=== PATIENT | female | born 1965 | race Caucasian/White ===

== ENCOUNTER 2021-12-05 15:52 | Outpatient (REF) | payer MEDICARE, SELFPAY ==
--- NOTE | ~2021-12-05 | XR_ITS ---
EXAMINATION: XR CHEST CLINICAL INFORMATION: Z87.891 - Personal history of nicotine dependence COMPARISON: None TECHNIQUE: 2 views of the chest were obtained. FINDINGS: Lungs are clear. There is no overt hyperinflation. No coarsening of the bronchiolar markings, airspace consolidation, pleural reaction, or effusion. The costophrenic sulci are clear. The heart is normal in size. The vascularity is normal. The hilar and mediastinal contours and bony structures are unremarkable. XR/XR chest 2V IMPRESSION: Unremarkable examination.
== END 2021-12-05 15:53 | disposition home or self-care (01) ==
LOC: HO.XRAY 15:52
PROVIDERS: PCP Internal Medicine; Visit Provider Internal Medicine
DX: J44.9 Chronic obstructive pulmonary disease, unspecified (principal); J30.9 Allergic rhinitis, unspecified; Z87.891 Personal history of nicotine dependence
CPT/HCPCS: 71046; 99202

== ENCOUNTER 2021-12-23 14:57 | Outpatient (REF) | payer MEDICARE, MEDICAID, SELFPAY ==
--- NOTE | 2021-12-23 16:39 | PFT_ITS ---
Forced vital capacity 41%, FEV1 25%, FEV1/FVC ratio is 48. FEF25/75 10% and MVV is 24%. Post bronchodilator therapy, there is a slight improvement in FVC by 31% and FEV1 by 11% and FEF25/75 by 39%. Total lung capacity 101% and residual volume is 184%, suggesting air trapping. Diffusion capacity 46%. CONCLUSION: 1. Very very severe obstructive airway disorder. 2. Only minimal improvement after bronchodilator therapy is noted. 3. Clinical correlation recommended. MD FELICIA Kothari/MODL / [id number]
== END 2021-12-23 14:58 | disposition home or self-care (01) ==
LOC: HO.RESP 14:57
PROVIDERS: PCP Internal Medicine; Visit Provider Internal Medicine
DX: J44.9 Chronic obstructive pulmonary disease, unspecified (principal); J30.9 Allergic rhinitis, unspecified; Z87.891 Personal history of nicotine dependence
CPT/HCPCS: 94060; 94727; 94729

== ENCOUNTER → 2022-07-06 13:38 | Outpatient (BNVA) | payer MEDICARE, MEDICAID, SELFPAY | PROVIDERS: PCP Internal Medicine; Visit Provider Internal Medicine | DX: J44.9 Chronic obstructive pulmonary disease, unspecified (principal); J30.9 Allergic rhinitis, unspecified | CPT/HCPCS: 99212 ==

== ENCOUNTER 2023-02-05 13:09 | Outpatient (AMB) | payer MEDICARE, MEDICAID, SELFPAY ==
--- NOTE | 2023-02-05 13:20 | MHC.OFFVIS ---
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 Allergies acetaminophen Adverse Reaction (Unknown, Unverified 02/05/23 13:52) DEEP SOMNOLENCE hydrocodone Adverse Reaction (Unknown, Unverified 02/05/23 13:52) DEEP SOMNOLENCE Medication List - Last Reconciled 02/05/23 by Urmila Rodriguez MD albuterol sulfate 90 mcg/actuation 2 puffs inhalation Q6H PRN ktfzxxssnpx-lhgfngqfh-sukmfznf 200-62.5-25 mcg (Trelegy Ellipta) 1 ea inhalation DAILY loratadine 10 mg PO DAILY PRN montelukast 10 mg PO DAILY Do you need a note to return to daycare/school/sports/work: No HPI COPD HPI Details 57 years old female with advanced chronic obstructive pulmonary disease is here for follow-up. She is on Trelegy 1 inhalation daily, and uses albuterol 2 puffs Q 6 hours p.r.n.. She has had no recent acute infection. She does not have any wheezing attacks. Her main issue is that she gets short of breath on minimal walking. Her pulmonary function test on 12/23/2021, had shown a severe obstructive airway disorder. In spite of being on maximum treatment she continues to be short of breath on minimal exertion. [facility] Medical History (Updated 02/05/23 @ 13:59 by Urmila Rodriguez MD) Dyspnea on exertion Allergic rhinitis Positive screening for depression on 2-item Patient Health Questionnaire (PHQ-2) Family history of ovarian cancer Cervical cancer screening Mammogram declined Vaccination declined Skin lesion of back Environmental and seasonal allergies Former smoker COPD (chronic obstructive pulmonary disease) Surgical History H/O tubal ligation S/P partial hysterectomy Family History Father Substance use disorder Myocardial infarction Sister Ovarian cancer Lung cancer Mother HTN (hypertension) Social History Housing: Other Housing Other:: live with sister Patient Tobacco Use Status: Former Tobacco user e-Cigarette/Vaping Use: Never Used service: No Current occupational status: unemployed Cognitive needs: No Hearing needs: No Vision needs: Yes Review of Systems Const All systems reviewed & are unremarkable except as noted in HPI and below Eyes Reports no additional complaints ENT Reports nasal congestion (Mild intermittent) and Reports nasal discharge Card Denies chest pain, Denies irregular heart rhythm and Denies leg edema Resp Reports as per HPI GI Reports no additional complaints Reports no additional complaints Musc Reports no additional complaints Skin/Breast Reports system reviewed and no additional complaints, except as documented Neuro Reports no additional complaints Psych Reports no additional complaints Endo Reports no additional complaints Best/Lymph Reports no additional complaints Physical Exam Vital Signs: Last Vital Signs Pulse 74 02/05/23 13:23 BP 102/62 02/05/23 13:23 Pulse Ox 96 02/05/23 13:23 Oxygen Delivery Method Room Air 02/05/23 13:23 BMI result Body Mass Index 29.1 Const General: healthy appearing, comfortable and no acute distress Orientation/consciousness: patient oriented x3 HEENT Head: Yes normal to inspection General nose exam: No nasal polyps present and No nasal discharge present Face and sinus: Yes sinuses nontender Mouth: oropharynx normal Throat: Yes posterior oropharynx normal Eyes General: appearance normal, both eyes and all related structures Neck Neck: Yes normal visual inspection, Yes no lymphadenopathy, Yes trachea midline and Yes no JVD Thyroid: Thyroid normal Chest Chest palpation & inspection: normal inspection of the chest, normal palpation of entire chest wall and no tenderness Resp Other: Percussion note resonant, breath sounds are very distant on both sides with prolonged expiratory phase. No wheezes or rhonchi are heard. Cardio Palpation: normal PMI Rate: regular rate Rhythm: regular rhythm Heart sounds: no gallops and no murmurs GI Palpation (GI): Soft to palpation, nontender, No hepatosplenomegaly present and no masses Auscultation: normal bowel sounds Back/Spine/Pelvis Thoracic/Lumbar Spine: thoracic and lumbar spine normal to inspection Skin General skin exam: no rashes or lesions noted Neuro General: patient oriented x3 and no focal motor deficits Cranial nerves: Yes CN's II-XII intact bilaterally Extrem General: Yes normal to inspection, Yes no clubbing, cyanosis or edema and Yes no calf tenderness Psych Appearance: grossly normal and well kempt Speech and movement: Normal speech and movement present Results Reviewed Results Reviewed: Pulmonary function test results of 12/23/2021; c/w severe obstructive airway disorder * I made her walk with me for 4 minutes in the hallway. O2 sat 96% at rest, and it did not go below 93% after walking. Assessment & Plan Assessment & Plan (1) COPD (chronic obstructive pulmonary disease): Comment: Clinically she has advanced chronic obstructive pulmonary disease. TX: Continue Trelegy 200-62.5-25 1 inhalation daily. Montelukast 10 mg daily. Ventolin MDI 2 puffs Q 4-6 hours p.r.n.. Prescriptions are renewed. Code(s): J44.9 - Chronic obstructive pulmonary disease, unspecified Plan: as above (2) Dyspnea on exertion: Comment: Her dyspnea on exertion is out of proportion, to the other findings It is not due. To O2 desaturation I think it is mainly due to deconditioning, Code(s): R06.09 - Other forms of dyspnea Plan: Patient should be registered in pulmonary rehab program , to build her endurance , and train her for her energy conserving breathing exercises. (3) Allergic rhinitis: Comment: She has long-standing symptoms of mild to moderate allergic rhinitis with nasal congestion and postnasal discharge. tx: Continue montelukast 10 mg daily. Also add , Claritin 10 mg 1 tab once a day ( script sent 0 Code(s): J30.9 - Allergic rhinitis, unspecified Plan: As above Orders: Orders Pulmonary Rehab Today J44.9 - Chronic obstructive pulmonary disease, unspecified, R06.09 - Other forms of dyspnea Coding Level of Care Code Est Pt Level 4 (53817) Diagnoses COPD (chronic obstructive pulmonary disease) J44.9 Dyspnea on exertion R06.09 Allergic rhinitis J30.9
[2023-02-05 13:23] VITALS: BP 102/62; PULSE 74; O2SAT 96; BMI 29.1
== END 2023-02-05 13:53 | disposition home or self-care (01) ==
PROVIDERS: PCP Internal Medicine; Visit Provider Internal Medicine
DX: J44.9 Chronic obstructive pulmonary disease, unspecified (principal); R06.09 Other forms of dyspnea; J30.9 Allergic rhinitis, unspecified
CPT/HCPCS: 99214

== ENCOUNTER → 2023-02-05 13:09 | Outpatient (BNVA) | payer MEDICARE, MEDICAID, SELFPAY | PROVIDERS: PCP Internal Medicine; Visit Provider Internal Medicine | DX: J44.9 Chronic obstructive pulmonary disease, unspecified (principal); J30.9 Allergic rhinitis, unspecified; R06.09 Other forms of dyspnea | CPT/HCPCS: 99212 ==

== ENCOUNTER 2023-04-05 14:04 | Outpatient (REF) | payer MEDICARE, MEDICAID, SELFPAY ==
--- NOTE | ~2023-04-05 | XR_ITS ---
EXAMINATION: XR CHEST CLINICAL INFORMATION: Other forms of dyspnea. COMPARISON: 12/05/2021 TECHNIQUE: 2 views of the chest were obtained. FINDINGS: There is no gross pneumothorax. Heart size is normal. Lungs remain hyperinflated. No new focal consolidation to suggest pneumonia. Degenerative changes in the thoracic spine. No gross pleural effusion. XR/XR chest 2V IMPRESSION: Hyperinflated lungs compatible with COPD for this patient with history of nicotine dependence. CT scan without intravenous contrast should be considered given accompanying history of shortness of breath.
== END 2023-04-05 14:05 | disposition home or self-care (01) ==
LOC: HO.XRAY 14:04
PROVIDERS: PCP Internal Medicine; Visit Provider Internal Medicine
DX: J44.9 Chronic obstructive pulmonary disease, unspecified (principal); J30.9 Allergic rhinitis, unspecified; R06.09 Other forms of dyspnea; Z79.899 Other long term (current) drug therapy
CPT/HCPCS: 71046; 99212

== ENCOUNTER 2023-04-05 14:04 | Outpatient (AMB) | payer MEDICARE, MEDICAID, SELFPAY ==
--- NOTE | 2023-04-05 14:10 | A.OFFVIS_ITS ---
Intake Vital Signs 04/05/23 14:11 Height 4 ft 11 in Weight 146 lb BMI 29.5 BP 102/70 Blood Pressure Location Lt brachial Position Sitting Pulse 88 Pulse Source Pulse Oximeter Pulse Oximetry (%) 94 Oxygen Delivery Method Room Air Intake Visit Reasons: COPD Intake Note: pt is here for follow up and states she has been sick for about 6 weeks, had urgent care visit, told it was copd exh, and put on doxy and prednisone, and today is still coughing with yellow,thick phelgm. PT NEEDS REFILLS ON TRELEGY AND PLEASE PUT REFILLS SO SHE DOESN'T HAVE TO CALL EVERY MONTH Heliarc Welder Required: No Allergies acetaminophen Adverse Reaction (Unknown, Unverified 04/05/23 14:33) DEEP SOMNOLENCE hydrocodone Adverse Reaction (Unknown, Unverified 04/05/23 14:33) DEEP SOMNOLENCE Medication List - Last Reconciled 04/05/23 by Urmila Rodriguez MD albuterol sulfate 90 mcg/actuation 2 puffs inhalation Q6H PRN ibamwpqezdw-enlrceadr-mgykywlt 200-62.5-25 mcg (Trelegy Ellipta) 1 inh inhalation DAILY 30 days loratadine 10 mg PO DAILY PRN montelukast 10 mg PO DAILY Do you need a note to return to daycare/school/sports/work: No HPI COPD HPI Details THIS 58 YEARS OLD FEMALE IS A CASE OF ADVANCED CHRONIC OBSTRUCTIVE PULMONARY DISEASE. SHE WAS READY TO JOIN THE PULMONARY REHAB PROGRAM BUT THEN SHE HAD AN ACUTE EXACERBATION A FEW WEEKS AGO. SHE HAS BEEN TREATED WITH A COURSE OF DOXYCYCLINE AND PREDNISONE. SHE STILL HAVING BOUTS OF COUGH WHICH ARE SOMETIME DISTRESSFUL. SHE DOES GET SHORT OF BREATH ON MINIMAL EXERTION. USING TRELEGY ONCE A DAY AND ALBUTEROL ONLY ONCE IN A WHILE. NASAL CONGESTION IS RELATIVELY UNDER CONTROL, [facility] Medical History Dyspnea on exertion Allergic rhinitis Positive screening for depression on 2-item Patient Health Questionnaire (PHQ-2) Family history of ovarian cancer Cervical cancer screening Mammogram declined Vaccination declined Skin lesion of back Environmental and seasonal allergies Former smoker COPD (chronic obstructive pulmonary disease) Surgical History H/O tubal ligation S/P partial hysterectomy Family History Father Substance use disorder Myocardial infarction Sister Ovarian cancer Lung cancer Mother HTN (hypertension) Social History Housing: Other Housing Other:: live with sister Patient Tobacco Use Status: Former Tobacco user e-Cigarette/Vaping Use: Never Used service: No Current occupational status: unemployed Cognitive needs: No Hearing needs: No Vision needs: Yes Review of Systems Const All systems reviewed & are unremarkable except as noted in HPI and below Eyes Reports no additional complaints ENT Reports nasal congestion (Mild intermittent) and Reports nasal discharge Card Denies chest pain, Denies irregular heart rhythm and Denies leg edema Resp Reports as per HPI GI Reports no additional complaints Reports no additional complaints Musc Reports no additional complaints Skin/Breast Reports system reviewed and no additional complaints, except as documented Neuro Reports no additional complaints Psych Reports no additional complaints Endo Reports no additional complaints Best/Lymph Reports no additional complaints Physical Exam Vital Signs: Last Vital Signs Pulse 88 04/05/23 14:11 BP 102/70 04/05/23 14:11 Pulse Ox 94 04/05/23 14:11 Oxygen Delivery Method Room Air 04/05/23 14:11 BMI result Body Mass Index 29.5 Const General: healthy appearing, comfortable and no acute distress Orientation/consciousness: patient oriented x3 HEENT Head: Yes normal to inspection General nose exam: No nasal polyps present and No nasal discharge present Face and sinus: Yes sinuses nontender Mouth: oropharynx normal Throat: Yes posterior oropharynx normal Eyes General: appearance normal, both eyes and all related structures Neck Neck: Yes normal visual inspection, Yes no lymphadenopathy, Yes trachea midline and Yes no JVD Thyroid: Thyroid normal Chest Chest palpation & inspection: normal inspection of the chest, normal palpation of entire chest wall and no tenderness Resp Other: Percussion note resonant, breath sounds are very distant on both sides with prolonged expiratory phase. No wheezes or rhonchi are heard. Cardio Palpation: normal PMI Rate: regular rate Rhythm: regular rhythm Heart sounds: no gallops and no murmurs GI Palpation (GI): Soft to palpation, nontender, No hepatosplenomegaly present and no masses Auscultation: normal bowel sounds Back/Spine/Pelvis Thoracic/Lumbar Spine: thoracic and lumbar spine normal to inspection Skin General skin exam: no rashes or lesions noted Neuro General: patient oriented x3 and no focal motor deficits Cranial nerves: Yes CN's II-XII intact bilaterally Extrem General: Yes normal to inspection, Yes no clubbing, cyanosis or edema and Yes no calf tenderness Psych Appearance: grossly normal and well kempt Speech and movement: Normal speech and movement present Results Reviewed Results Reviewed: CHEST XRAY IS ORDERED Assessment & Plan Assessment & Plan (1) COPD (chronic obstructive pulmonary disease): Comment: Clinically she has advanced chronic obstructive pulmonary disease. Her symptoms are somewhat worse since her recent acute exacerbation. She is the waiting to join the pulmonary rehab program. Still has bouts of cough. Chest x-ray is ordered. Code(s): J44.9 - Chronic obstructive pulmonary disease, unspecified Plan: TX: Continue Trelegy 200-62.5-25 1 inhalation daily. Montelukast 10 mg daily. Ventolin MDI 2 puffs Q 4-6 hours p.r.n.. Prescriptions are renewed. (2) Allergic rhinitis: Comment: She has long-standing symptoms of mild to moderate allergic rhinitis with nasal congestion and postnasal discharge. Code(s): J30.9 - Allergic rhinitis, unspecified Plan: tx: Continue montelukast 10 mg daily. Claritin 10 mg 1 tab once a day (3) Dyspnea on exertion: Comment: Her dyspnea on exertion is out of proportion, to the other findings It is not due to O2 desaturation . I think it is mainly due to deconditioning, Code(s): R06.09 - Other forms of dyspnea Plan: Advise that she should join the pulmonary rehab program as soon as possible. Orders: Orders XR chest 2V Today J30.9 - Allergic rhinitis, unspecified, J44.9 - Chronic obstructive pulmonary disease, unspecified, R06.09 - Other forms of dyspnea Medications: New dfcvkrklcpk-zhpygpcqn-yydeedbo 200-62.5-25 mcg (Trelegy Ellipta) 1 inh inhalation DAILY 30 days 60 ea 5RF COPD Coding Level of Care Code Est Pt Level 3 (35880) Diagnoses COPD (chronic obstructive pulmonary disease) J44.9 Allergic rhinitis J30.9 Dyspnea on exertion R06.09
[2023-04-05 14:11] VITALS: BP 102/70; PULSE 88; O2SAT 94; BMI 29.5
== END 2023-04-05 14:33 | disposition home or self-care (01) ==
PROVIDERS: PCP Internal Medicine; Visit Provider Internal Medicine
DX: J44.9 Chronic obstructive pulmonary disease, unspecified (principal); J30.9 Allergic rhinitis, unspecified; R06.09 Other forms of dyspnea
CPT/HCPCS: 99213

== ENCOUNTER 2023-12-18 15:58 | Outpatient (AMB) | payer MEDICARE, MEDICAID, SELFPAY ==
--- NOTE | 2023-12-18 16:04 | MHC.OFFVIS ---
Vital Signs 12/18/23 16:05 Height 4 ft 11 in Weight 134 lb BMI 27.1 BP 102/78 Blood Pressure Location Lt brachial Position Sitting Pulse 91 Pulse Source Pulse Oximeter Pulse Oximetry (%) 94 Oxygen Delivery Method Room Air Intake Visit Reasons: copd Intake Note: pt is here for follow up Stamping Operator Required: No Allergies acetaminophen Adverse Reaction (Unknown, Unverified 12/19/23 08:24) DEEP SOMNOLENCE hydrocodone Adverse Reaction (Unknown, Unverified 12/19/23 08:24) DEEP SOMNOLENCE Medication List - Last Reconciled 12/19/23 by Urmila Rodriguez MD albuterol sulfate 90 mcg/actuation 2 puffs inhalation Q6H PRN ggnjhxvrjpy-zwmazqyxu-alnstegy 200-62.5-25 mcg (Trelegy Ellipta) 1 inh inhalation DAILY 30 days loratadine 10 mg PO DAILY PRN montelukast 10 mg PO DAILY Do you need a note to return to daycare/school/sports/work: No HPI HPI copd: Details: This 58 years old very pleasant female is here for follow-up after rather long-time. She missed a few appointments and then forgot to make an other one. She has been actually feeling very well, has had no acute exacerbation, COPD remains well controlled, She can walk better as she has lost about 12 lb of weight, in addition to Trelegy Ellipta once a day she uses albuterol inhaler only once a day on some days not all the times. PENDING SALE TO [facility] Medical History Dyspnea on exertion Allergic rhinitis Positive screening for depression on 2-item Patient Health Questionnaire (PHQ-2) Family history of ovarian cancer Cervical cancer screening Mammogram declined Vaccination declined Skin lesion of back Environmental and seasonal allergies Former smoker COPD (chronic obstructive pulmonary disease) Surgical History H/O tubal ligation S/P partial hysterectomy Family History Father Substance use disorder Myocardial infarction Sister Ovarian cancer Lung cancer Mother HTN (hypertension) Social History Housing: Other Housing Other:: live with sister Patient Tobacco Use Status: Former Tobacco user e-Cigarette/Vaping Use: Never Used service: No Current occupational status: unemployed Cognitive needs: No Hearing needs: No Vision needs: Yes Review of Systems Const All systems reviewed & are unremarkable except as noted in HPI and below Eyes Reports no additional complaints ENT Reports nasal congestion (Mild intermittent) and Reports nasal discharge Card Denies chest pain, Denies irregular heart rhythm and Denies leg edema Resp Reports as per HPI GI Reports no additional complaints Reports no additional complaints Musc Reports no additional complaints Skin/Breast Reports system reviewed and no additional complaints, except as documented Neuro Reports no additional complaints Psych Reports no additional complaints Endo Reports no additional complaints Best/Lymph Reports no additional complaints Physical Exam Vital Signs: Last Vital Signs Pulse 91 12/18/23 16:05 BP 102/78 12/18/23 16:05 Pulse Ox 94 12/18/23 16:05 Oxygen Delivery Method Room Air 12/18/23 16:05 BMI result Body Mass Index 27.1 Const General: healthy appearing, comfortable and no acute distress Orientation/consciousness: patient oriented x3 HEENT Head: Yes normal to inspection General nose exam: No nasal polyps present and No nasal discharge present Face and sinus: Yes sinuses nontender Mouth: oropharynx normal Throat: Yes posterior oropharynx normal Eyes General: appearance normal, both eyes and all related structures Neck Neck: Yes normal visual inspection, Yes no lymphadenopathy, Yes trachea midline and Yes no JVD Thyroid: Thyroid normal Chest Chest palpation & inspection: normal inspection of the chest, normal palpation of entire chest wall and no tenderness Resp Other: Percussion note resonant, breath sounds are very distant on both sides with prolonged expiratory phase. No wheezes or rhonchi are heard. Cardio Palpation: normal PMI Rate: regular rate Rhythm: regular rhythm Heart sounds: no gallops and no murmurs GI Palpation (GI): Soft to palpation, nontender, No hepatosplenomegaly present and no masses Auscultation: normal bowel sounds Back/Spine/Pelvis Thoracic/Lumbar Spine: thoracic and lumbar spine normal to inspection Skin General skin exam: no rashes or lesions noted Neuro General: patient oriented x3 and no focal motor deficits Cranial nerves: Yes CN's II-XII intact bilaterally Extrem General: Yes normal to inspection, Yes no clubbing, cyanosis or edema and Yes no calf tenderness Psych Appearance: grossly normal and well kempt Speech and movement: Normal speech and movement present Assessment & Plan Assessment & Plan (1) COPD (chronic obstructive pulmonary disease): Comment: Clinically she has advanced chronic obstructive pulmonary disease. Her symptoms are controlled fairly well at this time, she has had no acute exacerbations. Code(s): J44.9 - Chronic obstructive pulmonary disease, unspecified Category: Medical Plan: Advised to continue using Trelegy Ellipta 1 inhalation daily , prescription renewed. Continue albuterol HFA only p.r.n. if there is increased wheezing or cough. (2) Allergic rhinitis: Comment: She has long-standing symptoms of mild to moderate allergic rhinitis with nasal congestion and postnasal discharge. Symptoms well controlled at this time. Code(s): J30.9 - Allergic rhinitis, unspecified Category: Medical Plan: Loratadine 10 mg once a day p.r.n.. Montelukast 10 mg daily to continue (3) Dyspnea on exertion: Comment: Her dyspnea on exertion is much less than before, as she is in a better physical condition. Weight loss of 12 lb has also helped. Code(s): R06.09 - Other forms of dyspnea Category: Medical Plan: Continue doing deep breathing exercises at least 3 times a day. Lose a few more lb of weight, and continue doing regular daily exercises. Medications: Changed From montelukast 10 mg PO DAILY 90 tabs 1RF J30.89 - Other allergic rhinitis To montelukast 10 mg PO DAILY 90 days 90 tabs 3RF J30.89 - Other allergic rhinitis From albuterol sulfate 90 mcg/actuation 2 puffs inhalation Q6H PRN 8.5 ea 1RF for wheezing To albuterol sulfate 90 mcg/actuation 2 puffs inhalation Q6H 30 days PRN 8.5 ea 3RF for wheezing Refilled ctkrlajvxrx-nnkrqzaos-achmftku 200-62.5-25 mcg (Trelegy Ellipta) 1 inh inhalation DAILY 30 days 60 ea 5RF COPD Coding Level of Care Code Est Pt Level 3 (80094) Diagnoses COPD (chronic obstructive pulmonary disease) J44.9 Allergic rhinitis J30.9 Dyspnea on exertion R06.09
[2023-12-18 16:05] VITALS: BP 102/78; PULSE 91; O2SAT 94; BMI 27.1
== END 2023-12-18 16:11 | disposition home or self-care (01) ==
PROVIDERS: PCP Internal Medicine; Visit Provider Internal Medicine
DX: J44.9 Chronic obstructive pulmonary disease, unspecified (principal); J30.9 Allergic rhinitis, unspecified; R06.09 Other forms of dyspnea
CPT/HCPCS: 99213

== ENCOUNTER → 2023-12-18 15:58 | Outpatient (BNVA) | payer MEDICARE, MEDICAID, SELFPAY | PROVIDERS: PCP Internal Medicine; Visit Provider Internal Medicine | DX: J44.9 Chronic obstructive pulmonary disease, unspecified (principal); J30.9 Allergic rhinitis, unspecified; R06.09 Other forms of dyspnea | CPT/HCPCS: 99212 ==

== ENCOUNTER 2024-07-16 14:08 | Outpatient (AMB) | payer MEDICARE, MEDICAID, SELFPAY ==
[2024-07-16 14:22] VITALS: BP 108/70; PULSE 85; O2SAT 93; BMI 25.4
--- NOTE | 2024-07-16 14:22 | MHC.OFFVIS ---
Vital Signs 07/16/24 14:22 Height 4 ft 11 in Weight 126 lb BMI 25.4 BP 108/70 Blood Pressure Location Lt brachial Position Sitting Pulse 85 Pulse Source Pulse Oximeter Pulse Oximetry (%) 93 Oxygen Delivery Method Room Air Intake Visit Reasons: copd Intake Note: pt is here for follow up and states her breathing is affecting her every day life, she is short of breath with any exertion. 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 Allergies acetaminophen Adverse Reaction (Unknown, Unverified 07/16/24 14:47) DEEP SOMNOLENCE hydrocodone Adverse Reaction (Unknown, Unverified 07/16/24 14:47) DEEP SOMNOLENCE Medication List - Last Reconciled 07/16/24 by Urmila Rodriguez MD albuterol sulfate 90 mcg/actuation 2 puffs inhalation Q6H PRN 30 days sukbkhzgqxc-mqhcoivmq-cagcgzus 200-62.5-25 mcg (Trelegy Ellipta) 1 inh inhalation DAILY 30 days loratadine 10 mg PO DAILY PRN montelukast 10 mg PO DAILY 90 days Do you need a note to return to daycare/school/sports/work: No HPI HPI copd: Details: THIS 59 YEARS OLD FEMALE IS A CASE OF ADVANCED CHRONIC OBSTRUCTIVE PULMONARY DISEASE. SHE ALSO HAS CHRONIC ALLERGIC RHINITIS, THAT FLARES UP AT THE TIME OF CHANGING SEASON, ESPECIALLY IN THE LAST FEW WEEKS SINCE THE START OF SPRING. HER MAIN ISSUE IS GETTING SHORT OF BREATH ON ANY WALKING OR EXERTION ESPECIALLY IF SHE HAS TO CLIMB STAIRS. IN ADDITION TO TRELEGY ONCE A DAY SHE IS USING PROAIR ABOUT 4-5 TIMES EVERY DAY. SHE DOES NOT GO OUTDOORS BUT EVEN IN THE HOUSE WHEN SHE IS GOING UP AND DOWN STAIRS OR WALKING FAST SHE GETS SHORT OF BREATH AND THEN SHE STARTS USING THE PROAIR SHE DOES USE THE TRELEGY 1 INHALATION DAILY. BECAUSE SHE ENDS UP USING PROAIR FREQUENTLY SHE IS RUNNING OUT OF THE SUPPLY BEFORE A MONTH. [facility] Medical History Dyspnea on exertion Allergic rhinitis Positive screening for depression on 2-item Patient Health Questionnaire (PHQ-2) Family history of ovarian cancer Cervical cancer screening Mammogram declined Vaccination declined Skin lesion of back Environmental and seasonal allergies Former smoker COPD (chronic obstructive pulmonary disease) Surgical History H/O tubal ligation S/P partial hysterectomy Family History Father Substance use disorder Myocardial infarction Sister Ovarian cancer Lung cancer Mother HTN (hypertension) Social History Housing: Other Housing Other:: live with sister Patient Tobacco Use Status: Former Tobacco user e-Cigarette/Vaping Use: Never Used service: No Current occupational status: unemployed Cognitive needs: No Hearing needs: No Vision needs: Yes Review of Systems Const All systems reviewed & are unremarkable except as noted in HPI and below Eyes Reports no additional complaints ENT Reports nasal congestion (Mild intermittent) and Reports nasal discharge Card Denies chest pain, Denies irregular heart rhythm and Denies leg edema Resp Reports as per HPI GI Reports no additional complaints Reports no additional complaints Musc Reports no additional complaints Skin/Breast Reports system reviewed and no additional complaints, except as documented Neuro Reports no additional complaints Psych Reports no additional complaints Endo Reports no additional complaints Best/Lymph Reports no additional complaints Physical Exam Vital Signs: Last Vital Signs Pulse 85 07/16/24 14:22 BP 108/70 07/16/24 14:22 Pulse Ox 93 07/16/24 14:22 Oxygen Delivery Method Room Air 07/16/24 14:22 BMI result Body Mass Index 25.4 Const General: healthy appearing, comfortable and no acute distress Orientation/consciousness: patient oriented x3 HEENT Head: Yes normal to inspection General nose exam: No nasal polyps present and No nasal discharge present Face and sinus: Yes sinuses nontender Mouth: oropharynx normal Throat: Yes posterior oropharynx normal Eyes General: appearance normal, both eyes and all related structures Neck Neck: Yes normal visual inspection, Yes no lymphadenopathy, Yes trachea midline and Yes no JVD Thyroid: Thyroid normal Chest Chest palpation & inspection: normal inspection of the chest, normal palpation of entire chest wall and no tenderness Resp Other: Percussion note resonant, breath sounds are very distant on both sides with prolonged expiratory phase. No wheezes or rhonchi are heard. Cardio Palpation: normal PMI Rate: regular rate Rhythm: regular rhythm Heart sounds: no gallops and no murmurs GI Palpation (GI): Soft to palpation, nontender, No hepatosplenomegaly present and no masses Auscultation: normal bowel sounds Back/Spine/Pelvis Thoracic/Lumbar Spine: thoracic and lumbar spine normal to inspection Skin General skin exam: no rashes or lesions noted Neuro General: patient oriented x3 and no focal motor deficits Cranial nerves: Yes CN's II-XII intact bilaterally Extrem General: Yes normal to inspection, Yes no clubbing, cyanosis or edema and Yes no calf tenderness Psych Appearance: grossly normal and well kempt Speech and movement: Normal speech and movement present Results Reviewed Results Reviewed: I WALKED THE PATIENT FOR 6 MINUTES. O2 SAT AT REST 93%. DURING WALK SHE WAS VISIBLY SHORT OF BREATH HOWEVER THE LOWEST O2 SAT WAS 90%. SHE HAS TENDENCY TO HYPERVENTILATE AND ALSO TENDENCY TO USE PROAIR ANY TIME CA SHORT OF BREATH. I TOLD HER TO REST DO DEEP BREATHING EXERCISES AND WITHIN 2 MINUTES BREATHING WAS BETTER AND HER O2 SAT CAME UP TO 93%. Assessment & Plan Assessment & Plan (1) COPD (chronic obstructive pulmonary disease): Comment: Clinically she has advanced chronic obstructive pulmonary disease. Her symptoms are controlled fairly well at this time, she has had no acute exacerbations. But she does have increased shortness of breath on exertion. In addition to using Trelegy once a day she has a tendency to over use ProAir. Code(s): J44.9 - Chronic obstructive pulmonary disease, unspecified Category: Medical Plan: Advised to keep on using Trelegy Ellipta 1 inhalation daily Advised to use ProAir 2 puffs Q 4-6 hours but no more than 3 to 4 times a day. She was educated that if she feels short of breath she needs to sit down and start doing deep breathing exercises, especially with pursed lip technique. Told her that at this time she did not qualify for oxygen but we will keep checking it more frequently. (2) Former smoker: Comment: Forty pack years history of smoking. Quit about 1 year ago. She is not too anxious to get the lung scan . Code(s): Z87.891 - Personal history of nicotine dependence Category: Social Hx Plan: Commended for not going back to smoking. Again discussed about annual lung screening program, she will think about this. (3) Dyspnea on exertion: Comment: Her dyspnea on exertion is mostly when she walks fast. When she walks at a slow speed she is okay. Code(s): R06.09 - Other forms of dyspnea Category: Medical Plan: She does get short of breath out of proportion to her COPD. But her O2 sat did not drop below 90%. I educated her to walk at a slower pace . When she gets short of breath she is advised to sit down and start doing deep breathing exercises Will continue to monitor her for off oxygen need. (4) Allergic rhinitis: Comment: She has long-standing symptoms of mild to moderate allergic rhinitis with nasal congestion and postnasal discharge. Symptoms well controlled at this time. Code(s): J30.9 - Allergic rhinitis, unspecified Category: Medical Plan: OK to use loratadine 10 mg once a day p.r.n.. Continue to use montelukast 10 mg once a day. Coding Level of Care Code Est Pt Level 3 (85628) Diagnoses COPD (chronic obstructive pulmonary disease) J44.9 Former smoker Z87.891 Dyspnea on exertion R06.09 Allergic rhinitis J30.9
== END 2024-07-16 14:43 | disposition home or self-care (01) ==
LOC: HO.HPS 14:08
PROVIDERS: PCP Internal Medicine; Visit Provider Internal Medicine
DX: J44.9 Chronic obstructive pulmonary disease, unspecified (principal); Z87.891 Personal history of nicotine dependence; R06.09 Other forms of dyspnea; J30.9 Allergic rhinitis, unspecified
CPT/HCPCS: 99213

== ENCOUNTER → 2024-07-16 14:08 | Outpatient (BNVA) | payer MEDICARE, MEDICAID, SELFPAY | PROVIDERS: PCP Internal Medicine; Visit Provider Internal Medicine | DX: J44.9 Chronic obstructive pulmonary disease, unspecified (principal); R06.09 Other forms of dyspnea; J30.9 Allergic rhinitis, unspecified; Z87.891 Personal history of nicotine dependence | CPT/HCPCS: 99212 ==

== ENCOUNTER 2024-10-09 13:48 | Outpatient (AMB) | payer MEDICARE, MEDICAID, SELFPAY ==
--- NOTE | 2024-10-09 14:00 | A.OFFVIS_ITS ---
Vital Signs 10/09/24 14:01 Height 4 ft 11 in Weight 122 lb 5.705 oz BMI 24.7 BP 124/73 Blood Pressure Location Lt brachial Position Sitting Pulse 60 Pulse Source Pulse Oximeter Pulse Oximetry (%) 94 Oxygen Delivery Method Room Air Intake Visit Reasons: COPD Intake Note: pt is here for follow up and states she is feeling much better with loosing weight. pt would like 3 month supply of albuterol with refills. Manager Wealth Management Required: No Allergies acetaminophen Adverse Reaction (Unknown, Unverified 10/09/24 14:22) DEEP SOMNOLENCE hydrocodone Adverse Reaction (Unknown, Unverified 10/09/24 14:22) DEEP SOMNOLENCE Medication List - Last Reconciled 10/09/24 by Urmila Rodriguez MD albuterol sulfate 90 mcg/actuation 2 puffs inhalation Q6H PRN 30 days erifffnpnaa-bxuqobthf-rdeshqil 200-62.5-25 mcg (Trelegy Ellipta) 1 inh inhalation DAILY 30 days loratadine 10 mg PO DAILY PRN montelukast 10 mg PO DAILY 90 days Do you need a note to return to daycare/school/sports/work: No HPI HPI COPD: Details: 59 years old female very pleasant, is here for follow-up for COPD. She is an very happy mood today and his claims that her breathing is much better, She has more energy and can. Do more work on a daily basis She is happy with using Trelegy only once a day, she still ends up using albuterol about 3 times a day. SHE IS NONSMOKER, HAS HAD NO RECURRENT INFECTION. [facility] Medical History Dyspnea on exertion Allergic rhinitis Positive screening for depression on 2-item Patient Health Questionnaire (PHQ-2) Family history of ovarian cancer Cervical cancer screening Mammogram declined Vaccination declined Skin lesion of back Environmental and seasonal allergies Former smoker COPD (chronic obstructive pulmonary disease) Surgical History H/O tubal ligation S/P partial hysterectomy Family History Father Substance use disorder Myocardial infarction Sister Ovarian cancer Lung cancer Mother HTN (hypertension) Social History Housing: Other Housing Other:: live with sister Patient Tobacco Use Status: Former Tobacco user e-Cigarette/Vaping Use: Never Used service: No Current occupational status: unemployed Cognitive needs: No Hearing needs: No Vision needs: Yes Review of Systems Const All systems reviewed & are unremarkable except as noted in HPI and below Eyes Reports no additional complaints ENT Reports nasal congestion (Mild intermittent) and Reports nasal discharge Card Denies chest pain, Denies irregular heart rhythm and Denies leg edema Resp Reports as per HPI GI Reports no additional complaints Reports no additional complaints Musc Reports no additional complaints Skin/Breast Reports system reviewed and no additional complaints, except as documented Neuro Reports no additional complaints Psych Reports no additional complaints Endo Reports no additional complaints Best/Lymph Reports no additional complaints Physical Exam Vital Signs: Last Vital Signs Pulse 60 10/09/24 14:01 BP 124/73 10/09/24 14:01 Pulse Ox 94 10/09/24 14:01 Oxygen Delivery Method Room Air 10/09/24 14:01 BMI result Body Mass Index 24.7 Const General: healthy appearing, comfortable and no acute distress Orientation/consciousness: patient oriented x3 HEENT Head: Yes normal to inspection General nose exam: No nasal polyps present and No nasal discharge present Face and sinus: Yes sinuses nontender Mouth: oropharynx normal Throat: Yes posterior oropharynx normal Eyes General: appearance normal, both eyes and all related structures Neck Neck: Yes normal visual inspection, Yes no lymphadenopathy, Yes trachea midline and Yes no JVD Thyroid: Thyroid normal Chest Chest palpation & inspection: normal inspection of the chest, normal palpation of entire chest wall and no tenderness Resp Other: Percussion note resonant, breath sounds are very distant on both sides with prolonged expiratory phase. No wheezes or rhonchi are heard. Cardio Palpation: normal PMI Rate: regular rate Rhythm: regular rhythm Heart sounds: no gallops and no murmurs GI Palpation (GI): Soft to palpation, nontender, No hepatosplenomegaly present and no masses Auscultation: normal bowel sounds Back/Spine/Pelvis Thoracic/Lumbar Spine: thoracic and lumbar spine normal to inspection Skin General skin exam: no rashes or lesions noted Neuro General: patient oriented x3 and no focal motor deficits Cranial nerves: Yes CN's II-XII intact bilaterally Extrem General: Yes normal to inspection, Yes no clubbing, cyanosis or edema and Yes no calf tenderness Psych Appearance: grossly normal and well kempt Speech and movement: Normal speech and movement present Assessment & Plan Assessment & Plan (1) Former smoker: Comment: Forty pack years history of smoking. Quit about 1 year ago. She is not too anxious to get the lung scan . Code(s): Z87.891 - Personal history of nicotine dependence Category: Social Hx Plan: Commended for having quit smoking and not having any urge to go back to it She still not ready to have annual lung scan. (2) COPD (chronic obstructive pulmonary disease): Comment: Clinically she has advanced chronic obstructive pulmonary disease. Her symptoms are controlled fairly well at this time, she has had no acute exacerbations. But she does have increased shortness of breath on exertion. In addition to using Trelegy once a day she has a tendency to over use ProAir. Code(s): J44.9 - Chronic obstructive pulmonary disease, unspecified Category: Medical Plan: Continue to use Trelegy Ellipta once a day. Use albuterol HFA ( ProAir) 2 puffs Q 6 hours only p.r.n. and I educated her that she does not have to use it every day. She wants prescription for 3 months. (3) Allergic rhinitis: Comment: She has long-standing symptoms of mild to moderate allergic rhinitis with nasal congestion and postnasal discharge. Symptoms well controlled at this time. Code(s): J30.9 - Allergic rhinitis, unspecified Category: Medical Plan: Needs to take loratadine 10 mg only once a day p.r.n. Coding Level of Care Code Est Pt Level 3 (64872) Diagnoses Former smoker Z87.891 COPD (chronic obstructive pulmonary disease) J44.9 Allergic rhinitis J30.9
[2024-10-09 14:01] VITALS: BP 124/73; PULSE 60; O2SAT 94; BMI 24.7
== END 2024-10-09 14:27 | disposition home or self-care (01) ==
LOC: HO.HPS 13:49
PROVIDERS: PCP Internal Medicine; Visit Provider Internal Medicine
DX: Z87.891 Personal history of nicotine dependence (principal); J44.9 Chronic obstructive pulmonary disease, unspecified; J30.9 Allergic rhinitis, unspecified
CPT/HCPCS: 99213

== ENCOUNTER → 2024-10-09 13:48 | Outpatient (BNVA) | payer MEDICARE, MEDICAID, SELFPAY | PROVIDERS: PCP Internal Medicine; Visit Provider Internal Medicine | DX: J44.9 Chronic obstructive pulmonary disease, unspecified (principal); J30.9 Allergic rhinitis, unspecified; Z87.891 Personal history of nicotine dependence; Z79.899 Other long term (current) drug therapy | CPT/HCPCS: 99212 ==